=== PATIENT | female | born 1940 | race Caucasian/White ===

== ENCOUNTER 2018-08-14 10:04 | Outpatient (REF) | payer MEDICARE, MEDICAID, SELFPAY ==
[2018-08-14 13:22] LABS: Anion Gap 10.4 mmol/L (3-11); BUN 22 mg/dL (7-18); CO2 28.6 mmol/L (21.0-32.0); CREATININE 0.88 mg/dL (0.55-1.02); Calcium 10.1 mg/dL (8.5-10.1); Chloride 101 mmol/L (98-107); Cholesterol 212 mg/dL (50-200); Glucose 105 mg/dL (70-100); HDL Cholesterol 57 mg/dL (40-60); LDL CHOLESTEROL 135 mg/dL (<100); Potassium 3.9 mmol/L (3.5-5.1); Sodium 140 mmol/L (136-145); Triglyceride 112 mg/dL (30-150)
[2018-08-15 12:34] LABS: ALT 23 U/L (12-78); AST 21 U/L (15-37); Alkaline Phosphatase 78 U/L (46-116); Bilirubin, Direct 0.14 mg/dL (0.00-0.20); Bilirubin, Total 0.5 mg/dL (0.2-1.0); Total Protein 7.6 g/dL (6.4-8.2)
== END 2018-08-14 10:24 ==
LOC: NCHCN 10:04
PROVIDERS: PCP Nurse Practitioner Family; Visit Provider Nurse Practitioner Family
DX: K30 Functional dyspepsia (principal); R42 Dizziness and giddiness; E83.52 Hypercalcemia; N95.2 Postmenopausal atrophic vaginitis; I10 Essential (primary) hypertension; M19.90 Unspecified osteoarthritis, unspecified site; R32 Unspecified urinary incontinence; E66.9 Obesity, unspecified; E78.5 Hyperlipidemia, unspecified
CPT/HCPCS: 80048; 80061; 80076; 83721

== ENCOUNTER 2018-08-28 01:37 | Outpatient (CLI) | payer MEDICARE, MEDICAID, SELFPAY ==
--- NOTE | 2018-08-28 14:28 | DI.DEXA_ITS ---
SYMPTOM/DIAGNOSIS: SCREENING FOR OSTEOPOROSIS IN POST MENOPAUSAL WOMAN, Z78.0 DEXA SCAN: For the right forearm, a T score of -0.8 and a Z score of 1.8 are consistent with osteopenia. For the left hip, a T score of -1.8 and a Z score of 0 are also consistent with osteopenia and an increased fracture risk. When compared with the prior study of 06/12/03, the findings today represent a -5.4% interval decrease in mineralization. For the lumbar spine, a T score of -0.3 and a Z score of 2.2 are within the normal range and the values today represent a +20.5% interval increase in mineralization when compared with the 06/12/2003 exam. The scanogram reveals no evidence of a fracture.
== END 2018-08-28 01:57 ==
PROVIDERS: PCP Nurse Practitioner Family; Visit Provider Nurse Practitioner Family
DX: M85.88 Other specified disorders of bone density and structure, other site (principal); Z78.0 Asymptomatic menopausal state
CPT/HCPCS: 77080

== ENCOUNTER 2018-08-28 09:55 | Outpatient (REF) | payer MEDICARE, MEDICAID, SELFPAY ==
[2018-08-28 12:38] LABS: Potassium 3.9 mmol/L (3.5-5.1)
== END 2018-08-28 10:15 ==
LOC: NCHCN 09:55
PROVIDERS: PCP Nurse Practitioner Family; Visit Provider Nurse Practitioner Family
DX: E87.6 Hypokalemia (principal)
CPT/HCPCS: 84132

== ENCOUNTER 2019-02-12 15:07 | Outpatient (REF) | payer MEDICARE, MEDICAID, SELFPAY ==
[2019-02-12 22:17] LABS: ALT 24 U/L (12-78); AST 25 U/L (15-37); Albumin 3.9 g/dL (3.4-5.0); Alkaline Phosphatase 67 U/L (46-116); Anion Gap 10.5 mmol/L (3-11); BUN 17 mg/dL (7-18); Bilirubin, Total 0.5 mg/dL (0.2-1.0); CO2 27.5 mmol/L (21.0-32.0); CREATININE 0.81 mg/dL (0.55-1.02); Calcium 10.6 mg/dL (8.5-10.1); Chloride 100 mmol/L (98-107); Glucose 98 mg/dL (70-100); Potassium 4.1 mmol/L (3.5-5.1); Sodium 138 mmol/L (136-145); Total Protein 7.8 g/dL (6.4-8.2)
== END 2019-02-12 15:27 ==
LOC: NCHCN 15:07
PROVIDERS: PCP Nurse Practitioner Family; Visit Provider Nurse Practitioner Family
DX: I10 Essential (primary) hypertension (principal); R42 Dizziness and giddiness; E83.52 Hypercalcemia; K30 Functional dyspepsia
CPT/HCPCS: 80053

== ENCOUNTER 2019-03-20 12:35 | Outpatient (CLI) | payer MEDICARE, MEDICAID, SELFPAY ==
[2019-03-20 14:03] LABS: ALT 23 U/L (12-78); AST 19 U/L (15-37); Albumin 3.7 g/dL (3.4-5.0); Alkaline Phosphatase 68 U/L (46-116); Anion Gap 11.5 mmol/L (3-11); BUN 15 mg/dL (7-18); Bilirubin, Total 0.5 mg/dL (0.2-1.0); CO2 28.5 mmol/L (21.0-32.0); CREATININE 0.82 mg/dL (0.55-1.02); Calcium 9.6 mg/dL (8.5-10.1); Chloride 101 mmol/L (98-107); Glucose 99 mg/dL (70-100); Potassium 3.8 mmol/L (3.5-5.1); Sodium 141 mmol/L (136-145); Total Protein 7.2 g/dL (6.4-8.2)
[2019-03-21 10:14] LABS: Parathyroid Hormone,Intact 58 pg/ml (19-88)
== END 2019-03-20 12:55 ==
PROVIDERS: PCP Nurse Practitioner Family; Visit Provider Nurse Practitioner Family
DX: E83.52 Hypercalcemia (principal); E87.6 Hypokalemia; I10 Essential (primary) hypertension
CPT/HCPCS: 80053; 82306; 83970

== ENCOUNTER → 2019-05-20 10:35 | Outpatient (BNVA) | payer MEDICARE, SELFPAY | PROVIDERS: PCP Nurse Practitioner Family; Visit Provider Nurse Practitioner Gerontology | DX: R32 Unspecified urinary incontinence (principal); I10 Essential (primary) hypertension | CPT/HCPCS: 51798; 99204 ==

== ENCOUNTER 2019-08-15 12:45 | Outpatient (REF) | payer MEDICARE, MEDICAID, SELFPAY ==
[2019-08-15 21:27] LABS: Anion Gap 7.1 mmol/L (3-11); BUN 20 mg/dL (7-18); CO2 30.9 mmol/L (21.0-32.0); CREATININE 0.87 mg/dL (0.55-1.02); Calcium 10.4 mg/dL (8.5-10.1); Chloride 101 mmol/L (98-107); Glucose 97 mg/dL (74-106); Sodium 139 mmol/L (136-145)
== END 2019-08-15 13:05 ==
LOC: NCHCN 12:45
PROVIDERS: PCP Nurse Practitioner Family; Visit Provider Nurse Practitioner Family
DX: I10 Essential (primary) hypertension (principal); E87.6 Hypokalemia; K30 Functional dyspepsia; R42 Dizziness and giddiness; E83.52 Hypercalcemia
CPT/HCPCS: 80048

== ENCOUNTER 2019-08-19 11:02 | Outpatient (CLI) | payer MEDICARE, SELFPAY ==
[2019-08-19 14:56] LABS: Vitamin D 25 Total 39.5 ng/ml (30-100)
[2019-08-19 21:51] LABS: Ionized Calcium 1.16 mmol/L (1.12-1.32)
[2019-08-20 12:33] LABS: Parathyroid Hormone,Intact 43 pg/mL (19-88)
== END 2019-08-19 11:22 ==
PROVIDERS: PCP Nurse Practitioner Family; Visit Provider Nurse Practitioner Family
DX: E83.52 Hypercalcemia (principal); E21.5 Disorder of parathyroid gland, unspecified
CPT/HCPCS: 36415; 82306; 82330; 83970

== ENCOUNTER 2019-09-13 02:46 | Outpatient (CLI) | payer MEDICARE, MEDICAID, SELFPAY ==
--- NOTE | 2019-09-13 08:47 | DI.MAMMO_ITS ---
EXAM: MG MAMMO DIAGNOSTIC BI CLINICAL HISTORY: DIAGNOSTIC, RT BREAST PAIN, N64.4 TECHNIQUE: Mammograms were interpreted according to the usual protocol including computer analysis w [employer] system, tomosynthesis and C-view imaging. FINDINGS: The breasts are of moderate density with fairly symmetrical distribution of fibroglandular tissue. N o dominant mass or clumped microcalcification is identified in either breast. Current examination is compared with previous examinations including December 2014 and there has been no gross interval change in appearance in comparison with the previous studies. IMPRESSION: No specific evidence of malignancy at this time. Routine screening examinations are suggested at year ly intervals in this age group according to the ACS ACR guidelines. Category 1. Breast density, categ ory B. BI-RADS Cat 1 - Negative. Breast Density - Category B - Scattered areas of fibroglandular density.
== END 2019-09-13 03:06 ==
PROVIDERS: PCP Nurse Practitioner Family; Visit Provider Nurse Practitioner Family
DX: N64.4 Mastodynia (principal)
CPT/HCPCS: 77062; 77066; G0279

== ENCOUNTER 2020-09-17 09:22 | Outpatient (CLI) | payer MEDICARE, MEDICAID, SELFPAY ==
[2020-09-18 14:42] LABS: COVID-19 RT-PCR UVMMC Result Negative (Negative)
== END 2020-09-17 09:42 ==
PROVIDERS: PCP Nurse Practitioner Family; Visit Provider Nurse Practitioner Family
DX: Z11.59 Encounter for screening for other viral diseases (principal); Z02.2 Encounter for examination for admission to residential institution
CPT/HCPCS: U0003

== ENCOUNTER 2021-03-18 11:13 | Outpatient (REF) | payer MEDICARE, MEDICAID, SELFPAY ==
[2021-03-18 14:07] LABS: ALT 23 U/L (14-59); AST 17 U/L (15-37); Albumin 3.7 g/dL (3.4-5.0); Alkaline Phosphatase 63 U/L (46-116); Anion Gap 8.5 mmol/L (3-11); BUN 19 mg/dL (7-18); Bilirubin, Total 0.4 mg/dL (0.2-1.0); CO2 29.5 mmol/L (21.0-32.0); CREATININE 0.9 mg/dL (0.55-1.02); Calcium 10.2 mg/dL (8.5-10.1); Chloride 101 mmol/L (98-107); Glucose 104 mg/dL (74-106); Potassium 3.9 mmol/L (3.5-5.1); Sodium 139 mmol/L (136-145); Total Protein 7.4 g/dL (6.4-8.2)
== END 2021-03-18 11:14 | disposition home or self-care (01) ==
LOC: NCHCN 11:13
PROVIDERS: PCP Nurse Practitioner Family; Visit Provider Nurse Practitioner Family
DX: K30 Functional dyspepsia (principal); E83.52 Hypercalcemia; E66.9 Obesity, unspecified; M54.9 Dorsalgia, unspecified; I10 Essential (primary) hypertension; N95.2 Postmenopausal atrophic vaginitis; R32 Unspecified urinary incontinence; M85.80 Other specified disorders of bone density and structure, unspecified site
CPT/HCPCS: 80053

== ENCOUNTER 2021-03-23 03:35 | Outpatient (CLI) | payer MEDICARE, MEDICAID, SELFPAY ==
[2021-03-23 09:52] LABS: PHOSPHORUS 3.2 mg/dL (2.6-4.7)
[2021-03-23 16:46] LABS: Ionized Calcium 1.17 mmol/L (1.12-1.32)
[2021-03-24 08:55] LABS: Parathyroid Hormone,Intact 45 pg/mL (19-88)
[2021-03-25 03:44] LABS: Vitamin D 25 Total 43.9 ng/mL (30-100)
== END 2021-03-23 03:36 | disposition home or self-care (01) ==
PROVIDERS: PCP Nurse Practitioner Family; Visit Provider Nurse Practitioner Family
DX: E83.52 Hypercalcemia (principal)
CPT/HCPCS: 36415; 82306; 82330; 83735; 83970; 84100

== ENCOUNTER 2021-11-02 02:45 | Outpatient (CLI) | payer MEDICARE, MEDICAID, SELFPAY ==
--- NOTE | 2021-11-02 09:00 | DI.MAMMO_ITS ---
Exam(s) MAMMO DIAGNOSTIC BI EXAM: MAMMO DIAGNOSTIC BI CLINICAL HISTORY: BREAST LESION, N64.9 TECHNIQUE: Mammograms were interpreted according to the usual protocol including computer analysis w [employer] CAD system, tomosynthesis and C-view imaging. COMPARISON: FINDINGS: The breasts are of moderate density with fairly symmetrical distribution of fibroglandular tissue. N o dominant mass or clumped microcalcification is identified in either breast. The current examinatio n is compared with previous examinations including September 2019 and there has been no gross interval change in appearance in comparison with the prior studies. IMPRESSION: No specific evidence of malignancy at this time. Routine screening examinations are suggested at yea rly intervals in this age group according to the ACS ACR guidelines. BI-RADS Category 1 - Negative Breast Density - Category B - Scattered areas of fibroglandular density
== END 2021-11-02 03:05 ==
PROVIDERS: PCP Nurse Practitioner Family; Visit Provider Nurse Practitioner Family
DX: N64.89 Other specified disorders of breast
CPT/HCPCS: 77062; 77066; G0279

== ENCOUNTER 2022-02-04 18:53 | Outpatient (REF) | payer MEDICARE, MEDICAID, SELFPAY ==
[2022-02-04 20:45] LABS: ALT 27 U/L (14-59); AST 32 U/L (15-37); Albumin 4.2 g/dL (3.4-5.0); Alkaline Phosphatase 77 U/L (46-116); Anion Gap 9.8 mmol/L (3-11); BUN 16 mg/dL (7-18); Bilirubin, Total 0.5 mg/dL (0.2-1.0); CO2 28.2 mmol/L (21.0-32.0); CREATININE 0.9 mg/dL (0.55-1.02); Chloride 102 mmol/L (98-107); Glucose 87 mg/dL (74-106); Potassium 4.3 mmol/L (3.5-5.1); Sodium 140 mmol/L (136-145); Total Protein 7.5 g/dL (6.4-8.2)
== END 2022-02-04 18:54 | disposition home or self-care (01) ==
LOC: NCHCN 18:53
PROVIDERS: PCP Nurse Practitioner Family; Visit Provider Nurse Practitioner Family
DX: E83.52 Hypercalcemia (principal); M85.80 Other specified disorders of bone density and structure, unspecified site; E78.5 Hyperlipidemia, unspecified; I10 Essential (primary) hypertension; E87.6 Hypokalemia
CPT/HCPCS: 80053; 82306

== ENCOUNTER 2022-06-17 15:49 | Outpatient (REF) | payer MEDICARE, MEDICAID, SELFPAY ==
[2022-06-17 17:00] LABS: ALT 19 U/L (14-59); AST 21 U/L (15-37); Albumin 3.9 g/dL (3.4-5.0); Alkaline Phosphatase 51 U/L (46-116); Anion Gap 7.4 mmol/L (3-11); BUN 20 mg/dL (7-18); Bilirubin, Total 0.4 mg/dL (0.2-1.0); CO2 29.6 mmol/L (21.0-32.0); CREATININE 0.8 mg/dL (0.55-1.02); Calcium 10.1 mg/dL (8.5-10.1); Chloride 103 mmol/L (98-107); Glucose 93 mg/dL (74-106); Potassium 3.9 mmol/L (3.5-5.1); Sodium 140 mmol/L (136-145); Total Protein 7.5 g/dL (6.4-8.2)
== END 2022-06-17 15:50 | disposition home or self-care (01) ==
LOC: NCHCN 15:49
PROVIDERS: PCP Nurse Practitioner Family; Visit Provider Nurse Practitioner Family
DX: I10 Essential (primary) hypertension (principal); E87.6 Hypokalemia; E83.52 Hypercalcemia
CPT/HCPCS: 80053

== ENCOUNTER 2022-08-30 17:59 | Outpatient (REF) | payer MEDICARE, MEDICAID, SELFPAY ==
[2022-08-30 12:03] LABS: Anion Gap 6.9 mmol/L (3-11); BUN 17 mg/dL (7-18); CO2 32.1 mmol/L (21.0-32.0); CREATININE 0.9 mg/dL (0.55-1.02); Calcium 10.2 mg/dL (8.5-10.1); Chloride 100 mmol/L (98-107); Estimated GFR 64.63 (mL/min/1.73m2); Glucose 99 mg/dL (74-106); Potassium 3.8 mmol/L (3.5-5.1); Sodium 139 mmol/L (136-145)
== END 2022-08-30 18:00 | disposition home or self-care (01) ==
LOC: NCHCN 17:59
PROVIDERS: PCP Nurse Practitioner Family; Visit Provider Nurse Practitioner Family
DX: I10 Essential (primary) hypertension (principal); E87.6 Hypokalemia
CPT/HCPCS: 80048

== ENCOUNTER 2023-06-25 15:50 | Outpatient (REF) | payer MEDICARE, MEDICAID, SELFPAY ==
[2023-06-25 15:47] LABS: Anion Gap 7.7 mmol/L (3-11); BUN 19 mg/dL (7-18); CO2 27.3 mmol/L (21.0-32.0); CREATININE 0.9 mg/dL (0.55-1.02); Chloride 99 mmol/L (98-107); Estimated GFR 64.63 (mL/min/1.73m2); Glucose 148 mg/dL (74-106); Potassium 3.5 mmol/L (3.5-5.1); Sodium 134 mmol/L (136-145)
[2023-06-25 16:21] LABS: Vitamin D 25 Total 39.6 ng/mL (30-100)
== END 2023-06-25 15:51 | disposition home or self-care (01) ==
LOC: NCHCN 15:50
PROVIDERS: PCP Nurse Practitioner Family; Visit Provider Nurse Practitioner Family
DX: I10 Essential (primary) hypertension (principal); E87.6 Hypokalemia; K30 Functional dyspepsia; M85.88 Other specified disorders of bone density and structure, other site
CPT/HCPCS: 80048; 82306

== ENCOUNTER 2023-06-29 16:19 | Outpatient (REF) | payer MEDICARE, MEDICAID, SELFPAY | END 2023-06-29 16:20 | disposition home or self-care (01) | LOC: NCHCN 16:19 | PROVIDERS: PCP Nurse Practitioner Family; Visit Provider Nurse Practitioner Family | DX: R73.9 Hyperglycemia, unspecified (principal) | CPT/HCPCS: 83036 ==

== ENCOUNTER 2023-09-09 10:01 | Outpatient (REF) | payer MEDICARE, MEDICAID, SELFPAY | END 2023-09-09 10:02 | disposition home or self-care (01) | LOC: NCHCN 10:01 | PROVIDERS: PCP Nurse Practitioner Family; Visit Provider Nurse Practitioner Family | DX: R35.0 Frequency of micturition (principal); Z87.440 Personal history of urinary (tract) infections; R82.998 Other abnormal findings in urine | CPT/HCPCS: 87086 ==

== ENCOUNTER 2023-10-31 18:38 | Outpatient (REF) | payer MEDICARE, MEDICAID, SELFPAY ==
[2023-10-31 17:26] LABS: Source Nasopharynx
[2023-10-31 18:08] LABS: COVID-19 PCR Negative (Negative)
== END 2023-10-31 18:39 | disposition home or self-care (01) ==
LOC: NCHCN 18:38
PROVIDERS: PCP Nurse Practitioner Family; Visit Provider Nurse Practitioner Family
DX: Z20.822 Contact with and (suspected) exposure to COVID-19 (principal)
CPT/HCPCS: 87635

== ENCOUNTER 2023-12-22 10:30 | Outpatient (REF) | payer MEDICARE, MEDICAID, SELFPAY ==
[2023-12-22 14:57] LABS: Hemoglobin A1C 5.9 % (<5.7)
== END 2023-12-22 10:31 | disposition home or self-care (01) ==
LOC: NCHCN 10:30
PROVIDERS: PCP Nurse Practitioner Family; Visit Provider Nurse Practitioner Family
DX: R73.03 Prediabetes (principal)
CPT/HCPCS: 83036

== ENCOUNTER 2024-05-22 18:38 | Outpatient (REF) | payer MEDICARE, MEDICAID, SELFPAY ==
[2024-05-22 13:55] LABS: Bilirubin Negative (Negative); Blood Negative (Negative); Clarity Sl Cloudy (Clear); Glucose Negative (Negative); Ketones Negative (Negative); Leukocyte Esterase Trace (Negative); Nitrite Positive (Negative); Urobilinogen 0.2 mg/dL (Up to 0.2)
[2024-05-22 14:12] LABS: Bacteria Moderate HPF (Negative); C & S Indicated? No/Sq. Contamination; Casts Negative LPF (Negative); Crystals Negative HPF (Negative); Epithelial Cells Moderate HPF (Negative); Mucus Negative (Negative); RBC 0-2 HPF (0-2)
== END 2024-05-22 18:39 | disposition home or self-care (01) ==
LOC: NCHCN 18:38
PROVIDERS: PCP Nurse Practitioner Family; Visit Provider Nurse Practitioner Family
DX: R82.998 Other abnormal findings in urine (principal); N95.2 Postmenopausal atrophic vaginitis
CPT/HCPCS: 81003; 81015

== ENCOUNTER 2024-05-23 20:17 | Outpatient (REF) | payer MEDICARE, MEDICAID, SELFPAY ==
[2024-05-23 19:52] LABS: Bilirubin Negative (Negative); Blood Negative (Negative); Clarity Sl Cloudy (Clear); Glucose Negative (Negative); Ketones Negative (Negative); Leukocyte Esterase Negative (Negative); Nitrite Positive (Negative); Urobilinogen 0.2 mg/dL (Up to 0.2)
[2024-05-23 19:55] LABS: Bacteria Moderate HPF (Negative); C & S Indicated? No; Casts Negative LPF (Negative); Crystals Negative HPF (Negative); Epithelial Cells Rare HPF (Negative); Mucus Negative (Negative); RBC Negative HPF (0-2); WBC 0-2 HPF (0-5)
== END 2024-05-23 20:18 | disposition home or self-care (01) ==
LOC: NCHCN 20:17
PROVIDERS: PCP Nurse Practitioner Family; Visit Provider Nurse Practitioner Family
DX: N95.2 Postmenopausal atrophic vaginitis (principal); R82.89 Other abnormal findings on cytological and histological examination of urine
CPT/HCPCS: 81003; 81015

== ENCOUNTER 2024-06-12 17:33 | Outpatient (REF) | payer MEDICARE, MEDICAID, SELFPAY ==
[2024-06-12 13:52] LABS: Anion Gap 6.3 mmol/L (3-11); BUN 15 mg/dL (7-18); CO2 30.7 mmol/L (21.0-32.0); CREATININE 0.8 mg/dL (0.55-1.02); Calcium 10.1 mg/dL (8.5-10.1); Chloride 96 mmol/L (98-107); Estimated GFR 73.98 (mL/min/1.73m2); Glucose 87 mg/dL (74-106); Potassium 3.9 mmol/L (3.5-5.1); Sodium 133 mmol/L (136-145)
[2024-06-12 14:04] LABS: Hemoglobin A1C 5.5 % (<5.7)
== END 2024-06-12 17:34 | disposition home or self-care (01) ==
LOC: NCHCN 17:33
PROVIDERS: PCP Nurse Practitioner Family; Visit Provider Nurse Practitioner Family
DX: R73.03 Prediabetes (principal)
CPT/HCPCS: 80048; 83036

== ENCOUNTER 2024-07-12 13:32 | Outpatient (REF) | payer MEDICARE, MEDICAID, SELFPAY ==
[2024-07-12 14:48] LABS: Anion Gap 7.3 mmol/L (3-11); BUN 16 mg/dL (7-18); CO2 31.7 mmol/L (21.0-32.0); CREATININE 0.9 mg/dL (0.55-1.02); Calcium 9.9 mg/dL (8.5-10.1); Chloride 101 mmol/L (98-107); Estimated GFR 63.83 (mL/min/1.73m2); Glucose 86 mg/dL (74-106); Potassium 3.8 mmol/L (3.5-5.1); Sodium 140 mmol/L (136-145); Vitamin D 25 Total 29.5 ng/mL (30-100)
== END 2024-07-12 13:33 | disposition home or self-care (01) ==
LOC: NCHCN 13:32
PROVIDERS: PCP Nurse Practitioner Family; Visit Provider Nurse Practitioner Family
DX: M85.88 Other specified disorders of bone density and structure, other site (principal); E87.1 Hypo-osmolality and hyponatremia
CPT/HCPCS: 80048; 82306

== ENCOUNTER 2024-11-13 20:16 | Outpatient (REF) | payer MEDICARE, MEDICAID, SELFPAY ==
[2024-11-13 20:32] LABS: Hemoglobin A1C 5.7 % (<5.7)
== END 2024-11-13 20:17 | disposition home or self-care (01) ==
LOC: NCHCN 20:16
PROVIDERS: PCP Nurse Practitioner Family; Visit Provider Nurse Practitioner Family
DX: R73.03 Prediabetes (principal)
CPT/HCPCS: 83036

== ENCOUNTER 2025-01-04 09:53 | Emergency (ER) | payer MEDICARE, MEDICAID, SELFPAY ==
[2025-01-04 09:59] VITALS: BP 143/70; PULSE 96; RESP 20; TEMP 36.7; O2SAT 96
--- NOTE | 2025-01-04 10:00 | DI.RAD_ITS ---
Exam(s) XR CHEST 2V PA LATERAL EXAM: XR CHEST 2V PA LATERAL CLINICAL HISTORY: Cough TECHNIQUE: 2D digital imaging was performed of the chest. Two images were obtained. PA and lateral views were obtained. COMPARISON: CR CHEST 2 VIEWS PA,LAT from 04/28/2011 FINDINGS: MEDIASTINUM: Normal. HEART: Normal. PULMONARY VASCULATURE: Normal. LUNGS: There is linear atelectasis in the left costophrenic angle. No focal consolidating infiltrate s are present. PLEURAL SPACE: No pleural effusion or pneumothorax. BONE:Within normal limits for the patient's age. OTHER FINDINGS:Normal. IMPRESSION: No acute pulmonary findings. DATA REPOSITORY: RADIATION DOSE DELIVERED:
[2025-01-04 10:20] VITALS: BP 143/70; PULSE 96; RESP 20; TEMP 36.7; O2SAT 96
[2025-01-04 10:50] LABS: COVID-19 PCR Negative (Negative); Influenza A PCR Negative (Negative); Influenza B PCR Negative (Negative); RSV PCR Negative (Negative)
[2025-01-04 10:52] LABS: Source Nasopharynx
--- NOTE | 2025-01-04 10:58 | ED.GENADUL_ITS ---
Discharge Plan Disposition Patient Disposition: Home Condition: Stable Discharge Details Clinical Impression: Upper respiratory infection, viral Primary Care Provider: Areli Lopez ED Provider: Radha Benton Home Meds and New Rx's Prescriptions: New benzonatate 100 mg capsule 100 mg PO BID-TID PRN (Reason: cough) Qty: 10 0RF Rx Instructions: Take 1 capsule up to 2-3 times daily as needed for cough Continued oxybutynin chloride 5 mg tablet extended release 24hr 5 mg PO DAILY Qty: 90 0RF acetaminophen [Tylenol] 325 MG tablet 325 mg PO Q4H PRN Vitamin C 100 MG tablet 100 mg PO DAILY hydrochlorothiazide 25 MG tablet 12.5 mg PO DAILY Nasir/Vit D 1 cap PO DAILY estradiol [Vagifem] 10 MCG tablet 10 mcg VG twice weekly Qty: 25 losartan 100 MG tablet 100 mg PO HS amlodipine 5 mg tablet 5 mg PO DAILY potassium chloride 20 mEq tablet extended release 20 meq PO DAILY chlorthalidone 50 mg tablet 50 mg PO DAILY Discharge Instructions Instructions: Cough, runny nose, and the common cold Additional Instructions: No evidence for pneumonia today on the x-ray. Negative for COVID and flu on our swab. Please use the Tessalon Perles as needed for cough as directed. Use your albuterol inhaler 1 or 2 puffs every 4-6 hours as needed. You may also use [id number] cough and cold medicines including DayQuil or similar. Follow up with primary care provider in 3-5 days. Return to ED sooner if any worsening or concerns. Please take Tylenol or Ibuprofen with food every 4-6 hours as needed for pain and swelling. Referrals: Areli Lopez [Primary Care Provider] - 3 days Discharge Data Discharge Date/Time-TO BE ENTERED AT DEPARTURE: 01/04/25 11:23 HPI General Mode of arrival: ambulatory . Date/Time Provider Initiated Documentation: 01/04/25 10:03 . Limitations to Documentation: no limitations . Information obtained by: patient, RN notes reviewed and old records reviewed . HPI Narrative: 84-year-old female presents to the ER with a chief complaint of cough for the last 3 days. Lives at [facility] in history of dementia. Denies any fever or chills. No history of COPD or other respiratory. History of hypertension osteoarthritis hyperlipidemia diverticulitis. She is alert and oriented. No wheezing auscultated on exam. Denies any other associated symptoms or concerns. Related Data Home Medications ?Medication ?Instructions ?Recorded ?Confirmed losartan 100 mg tablet 100 mg PO HS 02/22/14 01/04/25 acetaminophen 325 mg tablet 325 mg PO Q4H PRN 07/16/14 01/04/25 (Tylenol) ascorbic acid (vitamin C) 100 mg 100 mg PO DAILY 07/16/14 01/04/25 tablet (Vitamin C) Nasir/Vit D 1 cap PO DAILY 11/20/14 01/04/25 hydrochlorothiazide 25 mg tablet 12.5 mg PO DAILY 11/20/14 01/04/25 estradiol 10 mcg vaginal tablet 10 mcg vaginal twice weekly #25 08/05/15 01/04/25 (Vagifem) tabs oxybutynin chloride 5 mg 5 mg PO DAILY #90 tabs 05/20/19 01/04/25 tablet,extended release 24 hr amlodipine 5 mg tablet 5 mg PO DAILY 01/04/25 01/04/25 benzonatate 100 mg capsule 100 mg PO BID-TID PRN cough #10 01/04/25 caps chlorthalidone 50 mg tablet 50 mg PO DAILY 01/04/25 01/04/25 potassium chloride 20 mEq 20 meq PO DAILY 01/04/25 01/04/25 tablet,extended release Previous Rx's ?Medication ?Instructions ?Recorded oxybutynin chloride 5 mg 5 mg PO DAILY #90 tabs 05/20/19 tablet,extended release 24 hr benzonatate 100 mg capsule 100 mg PO BID-TID PRN cough #10 01/04/25 caps Allergies Allergy/AdvReac Type Severity Reaction Status Date / Time Penicillins Allergy Intermediate Hives Verified 01/04/25 10:03 cephalexin (From Keflex) Allergy Mild Other (See Verified 01/04/25 10:03 Comment) codeine Allergy Mild other Verified 01/04/25 10:03 lisinopril Allergy Mild Swelling/Ed Verified 01/04/25 10:03 esmer General Stated Complaint: RespSymp EVANGELISTA: 4 Review of Systems All systems reviewed & are unremarkable except as noted in HPI and below Respiratory Respiratory: Reports chest congestion and Reports cough Exam Narrative Exam Narrative: Constitutional: Alert and oriented x3. Appears stated age. Normal body habitus. Head: Normocephalic, no trauma. Eyes: Pupils PERRL, Red reflex noted, EOM's intact. Eyelids symmetrical without lesions, discharge, or swelling. ENT: Bilateral TM's WNL, External ear normal to inspection, no mastoid TTP, swelling, or erythema, Nasal turbinates WNL, no nasal discharge. Normal dentition, Posterior pharynx WNL, no exudate. Chest: RRR, Normal S1, S2, distal pulses intact. Resp: Lungs clear to auscultation bilaterally, no wheezes, rales, or rhonchi. Abdomen: Soft, non-distended, Normoactive bowel sounds all 4 quads. Musculoskeletal: Normal gait, Moves all 4 extremities without difficulty. Skin: No suspicious rashes or lesions. Capillary refill less than 2 sec. Neurologic: Cranial nerves II-XII intact. Alert and oriented x 3. Motor: No deficits noted. Sensory: Intact bilaterally all 4 extremities. Hematologic/Lymphatic: No ecchymosis, no lymphadenopathy. Course Vital Signs Vital signs: Vital Signs Temperature 36.7 C 01/04/25 09:59 Pulse 96 H 01/04/25 09:59 Respiratory Rate 20 01/04/25 09:59 Blood Pressure 143/70 H 01/04/25 09:59 Pulse Oximetry 96 01/04/25 09:59 Temperature 36.7 C 01/04/25 10:20 Temperature Source Oral 01/04/25 10:20 Pulse 96 H 01/04/25 10:20 Respiratory Rate 20 01/04/25 10:20 Blood Pressure 143/70 H 01/04/25 10:20 Blood Pressure Position Sitting 01/04/25 09:59 Pulse Oximetry 96 01/04/25 10:20 Oxygen Delivery Method Room Air 01/04/25 10:20 Oxygen Flow Rate 0 01/04/25 09:59 Pain Level 0 01/04/25 10:20 Lab/Test Results Lab/Test Results: Laboratory Tests Range/Units 01/04/25 10:08 COVID-19 Source Nasopharynx SARS-CoV-2 (PCR) (Negative) Negative Influenza Type A (PCR) (Negative) Negative Influenza Type B (PCR) (Negative) Negative RSV (PCR) (Negative) Negative Medical Decision Making 84-year-old female presents to the ER with a chief complaint of cough for the last 3 days. Lives at [facility] in history of dementia. Denies any fever or chills. No history of COPD or other respiratory. History of hypertension osteoarthritis hyperlipidemia diverticulitis. She is alert and oriented. No wheezing auscultated on exam. Denies any other associated symptoms or concerns. Chest x-ray shows no evidence for infiltrate, negative for COVID flu RSV. Will give Tessalon Perles and albuterol inhaler. Discussed home care and taking [id number] medications. Discussed strict return instructions, verbalized understanding. This text was generated using [employer] system, please disregard any oddities of phrase or misspellings. Medical Records Medical records reviewed: Yes I reviewed the patient's medical records. Lab Data Lab results reviewed: Yes I reviewed the patient's lab results. Labs: Laboratory Tests Range/Units 01/04/25 10:08 COVID-19 Source Nasopharynx SARS-CoV-2 (PCR) (Negative) Negative Influenza Type A (PCR) (Negative) Negative Influenza Type B (PCR) (Negative) Negative RSV (PCR) (Negative) Negative Quality:SDOH Health Related Social Needs: No Data to Display PFSH All Active Problems Upper respiratory infection, viral (Acute) Urinary incontinence (Chronic) Overactive bladder treated with oxybutynin with+/- results. 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 Mildly symptomatic. No treatment recommended Hyperlipidemia (Chronic) Hypertension (Chronic) cholelithiasis by US (Chronic) Osteoarthritis (Chronic) Osteopenia (Chronic) GI bleed (Acute 11/20/14) H/O gastrointestinal diverticular hemorrhage (Chronic) H/O surgical procedure (Chronic) a. colonoscopy b. EGD c. Cystoscopy d. 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
[2025-01-04] MEDS: Benzonatate 100 MG CAP PO ×2 (11:10→11:21)
[2025-01-04] MEDS: Albuterol HFA 8 GM 60 PUFF INH IH (11:10)
[2025-01-04 11:23] VITALS: BP 146/74; PULSE 74; RESP 16; TEMP 36.7; O2SAT 98
--- NOTE | 2025-01-04 12:44 | NUR.NOTE ---
Revised discharge orders faxed back to [facility] and sent to Medical Records to be scanned in to chart. Nursing Note:
== END 2025-01-04 11:23 | disposition home or self-care (01) ==
LOC: ER 11:16
PROVIDERS: Emergency Provider Registered Nurse Emergency; PCP Nurse Practitioner Family
DX: J06.9 Acute upper respiratory infection, unspecified (principal); B97.89 Other viral agents as the cause of diseases classified elsewhere; I10 Essential (primary) hypertension; E78.5 Hyperlipidemia, unspecified; F03.90 Unspecified dementia, unspecified severity, without behavioral disturbance, psychotic disturbance, mood disturbance, and anxiety
CPT/HCPCS: 87637; 99283; 71046

== ENCOUNTER 2025-03-26 20:14 | Outpatient (REF) | payer MEDICARE, MEDICAID, SELFPAY ==
[2025-03-26 10:54] LABS: ALT 17 U/L (14-59); AST 15 U/L (15-37); Albumin 3.2 g/dL (3.4-5.0); Alkaline Phosphatase 54 U/L (46-116); Anion Gap 9.5 mmol/L (3-11); BUN 20 mg/dL (7-18); Bilirubin, Total 0.5 mg/dL (0.2-1.0); CO2 29.5 mmol/L (21.0-32.0); Calcium 9.7 mg/dL (8.5-10.1); Chloride 102 mmol/L (98-107); Estimated GFR 73.52 (mL/min/1.73m2); Glucose 117 mg/dL (74-106); NT-proBNP 384 pg/mL (<300); Potassium 3.4 mmol/L (3.5-5.1); Sodium 141 mmol/L (136-145); Total Protein 6.6 g/dL (6.4-8.2)
[2025-03-26 11:07] LABS: D-Dimer 2039 ng/mlFEU (<500)
== END 2025-03-26 20:15 | disposition home or self-care (01) ==
LOC: NCHCN 20:14
PROVIDERS: PCP Nurse Practitioner Family; Visit Provider Nurse Practitioner Family
DX: R60.0 Localized edema (principal)
CPT/HCPCS: 80053; 83880; 85379

== ENCOUNTER 2025-03-30 17:52 | Outpatient (REF) | payer MEDICARE, MEDICAID, SELFPAY ==
[2025-03-30 12:54] LABS: Anion Gap 7.2 mmol/L (3-11); BUN 21 mg/dL (7-18); CO2 31.8 mmol/L (21.0-32.0); Calcium 9.8 mg/dL (8.5-10.1); Chloride 99 mmol/L (98-107); Estimated GFR 86.30 (mL/min/1.73m2); Glucose 81 mg/dL (74-106); Potassium 3.7 mmol/L (3.5-5.1); Sodium 138 mmol/L (136-145)
== END 2025-03-30 17:53 | disposition home or self-care (01) ==
LOC: NCHCN 17:52
PROVIDERS: PCP Nurse Practitioner Family; Visit Provider Nurse Practitioner Family
DX: R60.0 Localized edema (principal)
CPT/HCPCS: 80048

== ENCOUNTER 2025-04-02 15:40 | Outpatient (REF) | payer MEDICARE, MEDICAID, SELFPAY ==
[2025-04-02 11:00] LABS: Anion Gap 6.5 mmol/L (3-11); BUN 16 mg/dL (7-18); CO2 30.5 mmol/L (21.0-32.0); Calcium 10.0 mg/dL (8.5-10.1); Chloride 103 mmol/L (98-107); Estimated GFR 89.56 (mL/min/1.73m2); Glucose 110 mg/dL (74-106); Potassium 4.4 mmol/L (3.5-5.1); Sodium 140 mmol/L (136-145)
== END 2025-04-02 15:41 | disposition home or self-care (01) ==
LOC: NCHCN 15:40
PROVIDERS: PCP Nurse Practitioner Family; Visit Provider Nurse Practitioner Family
DX: E87.6 Hypokalemia (principal)
CPT/HCPCS: 80048

== ENCOUNTER 2025-05-14 12:06 | Outpatient (REF) | payer MEDICARE, MEDICAID, SELFPAY ==
[2025-05-14 12:22] LABS: Abs Immature Grans 0.03 10^3/uL (0.0-0.06); HCT 38.7 % (36.0-46.0); HGB 12.5 g/dL (11.2-15.7); Immature Grans % 0.4 %; MCH 29.3 pg (27.0-33.0); MCHC 32.3 % (32.0-36.0); MCV 91 fL (80-95); MPV 9.8 fL (8.0-11.0); Platelet Count 303 10^3/uL (130-400); RBC 4.26 10^6/uL (3.93-5.22); RDW 13.5 % (11.7-14.6); RDW-SD 45.1 fL; WBC 6.69 10^3/uL (4.4-10.8)
[2025-05-14 12:39] LABS: Anion Gap 4.2 mmol/L (3-11); BUN 12 mg/dL (7-18); CO2 31.8 mmol/L (21.0-32.0); Calcium 10.0 mg/dL (8.5-10.1); Chloride 102 mmol/L (98-107); Estimated GFR 73.52 (mL/min/1.73m2); Glucose 95 mg/dL (74-106); NT-proBNP 2079 pg/mL (<300); Potassium 4.4 mmol/L (3.5-5.1); Sodium 138 mmol/L (136-145)
[2025-05-14 12:41] LABS: Hemoglobin A1C 5.7 % (<5.7)
== END 2025-05-14 12:07 | disposition home or self-care (01) ==
LOC: NCHCN 12:06
PROVIDERS: PCP Nurse Practitioner Family; Visit Provider Nurse Practitioner Family
DX: R73.03 Prediabetes (principal)
CPT/HCPCS: 80048; 83036; 83880; 85025

== ENCOUNTER 2025-05-28 02:14 | Outpatient (CLI) | payer MEDICARE, MEDICAID, SELFPAY ==
--- NOTE | 2025-05-28 12:30 | DI.US_ITS ---
APPROVED REPORT EXAM: Comprehensive 2D, Doppler, and color-flow Echocardiogram Patient Location: Out-Patient Detention Officer: Emmett Howell RDCS (AE) Indications: Bilateral pedal edema Other Information Study Quality: Fair. Technically limited study due to body habitus. Conclusion Normal left ventricular wall thickness and chamber size. Ejection fraction is 55%. Wall motion is normal Normal right ventricular size and function Both atria are normal in size There is no structural or hemodynamically significant valvular disease Wall motion Left Ventricle The left ventricle is normal size. The left ventricular systolic function is normal. The left ventricular ejection fraction is within the normal range. There is normal left ventricular wall thickness. There is normal LV segmental wall motion. There is no ventricular septal defect visualized. LVEF is 55%. Right Ventricle The right ventricle is normal size. The right ventricular systolic function is normal. Atria The left atrium size is normal. The right atrium size is normal. The interatrial septum is intact with no evidence for an atrial septal defect. Aortic Valve The aortic valve is trileaflet There is no aortic valvular stenosis. No aortic regurgitation is present. Mitral Valve The mitral valve is normal in structure. No evidence of mitral valve stenosis. Trace to mild mitral regurgitation. Tricuspid Valve The tricuspid valve is normal in structure. There is no tricuspid valve stenosis. Trace tricuspid regurgitation. Pulmonic Valve The pulmonary valve is normal in structure. There is no pulmonic valvular stenosis. There is no pulmonic valvular regurgitation. Great Vessels The aortic root is normal in size. The ascending aorta is normal in size. Aortic arch is normal in caliber. IVC is normal in size and collapses >50% with inspiration. Pericardium There is no pericardial effusion. 2D Dimensions IVSD d PLAX 0.80 cm F: 0.6-1.0 Ao Root d 2.78 cm F: 2.7 - 3.3 LVPW d PLAX 0.77 cm F: 0.6 - 1.0 Ao Asc Diam d 2.95 cm F: 2.3 - 3.1 LVID d PLAX 5.29 cm F: 3.8 - 5.2 LVDs 3.77 cm F: 2.2 - 3.5 LV EF Teichholz 54.9 % FS 28.76 % LV EDV (Teich) 134.8 mL LV ESV (Teich) 60.7 mL Stroke Vol Index (Teich) 41.13 M-Mode TAPSE 2.52 cm (M/F) >1.7 Auto EF LV EDV A4C 109.1 mL LV EDV A2C 87.6 mL LV EDV BP 99.0 mL LV ESV A4C 50.8 mL LV ESV A2C 40.1 mL LV ESV BP 45.5 mL LVEF(%) A4C 53.4 % LVEF(%) A2C 54.2 % LVEF(%) BP 54.1 % LV SV A4C 58.3 ml LV SV A2C 47.5 ml LV SV BP 53.5 ml LV CO A4C 3.0 L/min LV CO A2C 2.3 L/min LV CO BP 2.6 L/min HR A4C 50.91 BPM HR A2C 48.57 BPM LV EDV Index (BP) LA Volume LA Length A4C 5.7 cm LA Length A2C LA Area A4C s 12.18 cm2 LA Area A2C s LA Vol A4C A-L 22.15 mL LA Vol A2C A-L LA Vol Biplane A-L LA Vol A4C MOD 20.8 mL LA Vol A2C MOD LA Vol BP MOD RA Volume RA Area A4C 11.1 cm2 RA ESV A4C (A-L) 25.5mL RA Vol/BSA A4C A-L RA Length A4C 4.1 cm RA ESV A4C (MOD) 22.8mL LV Diastology MV E' medial 0.079 (>0.07 m/s) MV E Vmax 0.80 (0.4-1.3 m/s) MV E/E' MED 10.18 (<14) MV A Vmax 0.90 (0.4-1.3 m/s) MV E' lateral 0.092 (>0.1 m/s) E/A Ratio 0.9 MV E/E' LAT 8.70 (<14) MV E' Average 0.085 m/s MV E/E'(average) 9.38 Aortic Valve AoV Vmax 1.50 m/s LVOT Vmax 1.02 m/s AoV Peak Grad 9.0 mmHg LVOT Peak Grad 4.2 mmHg AoV Area (Vmax) 2.20 cm2 LVOT VTI 0.228 m AoV VTI 0.372 m LVOT Mean Grad 1.7 mmHg AoV Mean Joe. 0.97 m/s LVOT SV 73.37 mL AoV Mean Grad 4.3 mmHg LVOT Diam s 2.00 cm AoV Area (VTI) 1.97 cm2 AV Regurg Peak Gr. 8.95 mmHg Velocity Ratio 0.68 Mitral Valve MV DT 259 (160-240 msec) Pulmonary Valve PV Vmax 0.90 (0.5-1.5 m/s) RVOT Vmax 0.65 m/s PV Peak Grad 3.3 mmHg RVOT Peak Gr. 1.7 mmHg PV Mean Joe 0.63 m/s RVOT VTI 0.192 m PV Mean Grad 1.8 mmHg RVOT Mean Gr. 1.0 mmHg
== END 2025-05-28 02:34 ==
PROVIDERS: PCP Nurse Practitioner Family; Visit Provider Nurse Practitioner Family
DX: R60.0 Localized edema (principal)
CPT/HCPCS: 93306

== ENCOUNTER 2025-05-29 15:10 | Outpatient (REF) | payer MEDICARE, MEDICAID, SELFPAY ==
[2025-05-29 20:49] LABS: Anion Gap 5.5 mmol/L (3-11); BUN 19 mg/dL (7-18); CO2 32.5 mmol/L (21.0-32.0); Calcium 10.0 mg/dL (8.5-10.1); Chloride 99 mmol/L (98-107); Estimated GFR 56.25 (mL/min/1.73m2); Glucose 126 mg/dL (74-106); Potassium 4.3 mmol/L (3.5-5.1); Sodium 137 mmol/L (136-145)
== END 2025-05-29 15:11 | disposition home or self-care (01) ==
LOC: NCHCN 15:10
PROVIDERS: PCP Nurse Practitioner Family; Visit Provider Nurse Practitioner Family
DX: R60.0 Localized edema (principal)
CPT/HCPCS: 80048

== ENCOUNTER 2025-06-27 21:37 | Outpatient (REF) | payer MEDICARE, MEDICAID, SELFPAY ==
[2025-06-27 21:48] LABS: Abs Immature Grans 0.02 10^3/uL (0.0-0.06); HCT 41.2 % (36.0-46.0); HGB 13.2 g/dL (11.2-15.7); Immature Grans % 0.3 %; MCH 28.6 pg (27.0-33.0); MCHC 32.0 % (32.0-36.0); MCV 89 fL (80-95); MPV 9.8 fL (8.0-11.0); Platelet Count 321 10^3/uL (130-400); RBC 4.62 10^6/uL (3.93-5.22); RDW 13.7 % (11.7-14.6); RDW-SD 44.9 fL; WBC 7.60 10^3/uL (4.4-10.8)
[2025-06-27 21:56] LABS: Iron 51 ug/dL (50-170); Total Iron Binding Capacity 240 ug/dL (250-450)
[2025-06-27 22:15] LABS: ALT 18 U/L (14-59); AST 16 U/L (15-37); Albumin 3.4 g/dL (3.4-5.0); Alkaline Phosphatase 67 U/L (46-116); Anion Gap 4.7 mmol/L (3-11); BUN 15 mg/dL (7-18); Bilirubin, Total 0.4 mg/dL (0.2-1.0); CO2 33.3 mmol/L (21.0-32.0); Calcium 9.7 mg/dL (8.5-10.1); Chloride 99 mmol/L (98-107); Estimated GFR 73.52 (mL/min/1.73m2); Ferritin 272 ng/mL (8-252); Glucose 91 mg/dL (74-106); Potassium 4.4 mmol/L (3.5-5.1); Sodium 137 mmol/L (136-145); TSH (W/Ref FT4) 2.06 uIU/mL (0.36-3.74); Total Protein 7.4 g/dL (6.4-8.2)
== END 2025-06-27 21:38 | disposition home or self-care (01) ==
LOC: NCHCN 21:37
PROVIDERS: PCP Nurse Practitioner Family; Visit Provider Nurse Practitioner Family
DX: R51.9 Headache, unspecified (principal)
CPT/HCPCS: 80053; 82728; 83540; 83550; 84443; 85025

== ENCOUNTER 2025-06-29 11:35 | Emergency (ER) | payer MEDICARE, MEDICAID, SELFPAY ==
[2025-06-29] VITALS (15 sets, daily range): BP systolic 165–192; BP diastolic 55–132; PULSE 47–62; RESP 16–18; TEMP 36.3–36.6; O2SAT 55–98
--- NOTE | 2025-06-29 12:00 | DI.CT_ITS ---
Exam(s) CT BRAIN NECK CTA EXAM: CT BRAIN NECK CTA CLINICAL HISTORY: new onset headache. TECHNIQUE: Imaging Protocol: Axial CT angiography was performed with multi- slice acquisition and multi-planar and MIP reconstructions. CONTRAST MATERIAL: Intravenous: Omnipaque 350 Contrast volume:70 ml COMPARISON: No exams were available for comparison FINDINGS: CT Head W/O and W contrast: Ventricles and Extra axial spaces: Moderate ventricular dilatation. Hemorrhage: None. Cerebral parenchyma: No evidence of acute infarct or mass. Moderate microvascular changes consistent with small vessel disease. Midline shift: None. Brainstem/Cerebellum: No acute findings.. Calvarium: Normal. Visualized Paranasal sinuses/Mastoids: Mucous retention in the right sphenoid sinus. Soft Tissues: Unremarkable. Enhancement: Normal. Venous sinuses are patent. CTA Brain W: Internal Carotid Arteries: Right: No aneurysm, occlusion or significant stenosis. Left: No aneurysm, occlusion or significant stenosis. Middle Cerebral Arteries: Right: No aneurysm, occlusion or significant stenosis. Left: No aneurysm, occlusion or significant stenosis. Anterior Cerebral Arteries: Right: No aneurysm, occlusion or significant stenosis. Left: No aneurysm, occlusion or significant stenosis. Posterior cerebral Arteries: Right: No aneurysm, occlusion or significant stenosis. Left: No aneurysm, occlusion or significant stenosis. Vertebral Arteries: Right: No aneurysm, occlusion or significant stenosis. Left: Dominant no aneurysm, occlusion or significant stenosis. Basilar Artery: No aneurysm, occlusion or significant stenosis. CTA Neck W: Visualized aorta: Unremarkable. Visualized pulmonary arteries: Unremarkable. Subclavian arteries: Unremarkable. Common Carotid: Right: No dissection, occlusion. Severe stenosis at the bulb. Left: No dissection, occlusion. Moderate stenosis at the bulb. External Carotid: Right: No dissection, occlusion or significant stenosis. Left: No dissection, occlusion or significant stenosis. Internal Carotid: Marked tortuosity with medial deviation into the retropharyngeal region bilaterally . Right: Somewhat diminutive caliber throughout compared to the left side. No dissection, occlusion or significant stenosis. Left: No dissection, occlusion or significant stenosis. Vertebral Artery: Right: No dissection, occlusion or significant stenosis. Left: Dominant moderate stenosis at the origin. No dissection, occlusion. Lung Apices: No acute findings. Bones: No acute abnormality. Severe degenerative disc changes. Soft Tissues: Normal. IMPRESSION: 1. CTA brain: Normal CTA examination of the [place]. 2. Head CT: Ventricular dilatation appears somewhat out of proportion to degree of atrophy. Normal pressure hydrocephalus could be considered. 3. CTA neck: Severe stenosis of the right common carotid bulb. The right internal carotid artery shows mildly reduced diameter throughout its course compared to the left side. Moderate stenosis at the left common carotid bulb. Marked tortuosity of the internal carotid arteries with medial deviation into the retropharyngeal region. Moderate stenosis at the origin of the left vertebral artery. The preliminary [facility] report was reviewed. RADIATION DOSE DELIVERED: Total DLP DATA REPOSITORY: All CT scans at this facility are submitted to the National Radiology Data Registry (NRDR) Dose Index Registry (DIR) with the [employer] (ACR). RADIATION OPTIMIZATION: All CT scans at this facility use at least one of these dose optimization techniques: automated exposure control; mA and/or kV adjustment per patient size (includes targeted exams where dose is matched to clinical indication); or iterative reconstruction.
[2025-06-29 12:46] LABS: Glucose Negative (Negative)
[2025-06-29 12:55] LABS: C & S Indicated? No; RBC 0-2 HPF (0-2)
[2025-06-29 12:56] LABS: Abs Immature Grans 0.02 10^3/uL (0.0-0.06); HCT 41.9 % (36.0-46.0); HGB 13.2 g/dL (11.2-15.7); Immature Grans % 0.3 %; MCH 28.0 pg (27.0-33.0); MCHC 31.5 % (32.0-36.0); MCV 89 fL (80-95); MPV 9.1 fL (8.0-11.0); Platelet Count 299 10^3/uL (130-400); RBC 4.71 10^6/uL (3.93-5.22); RDW 13.7 % (11.7-14.6); RDW-SD 44.5 fL; WBC 7.23 10^3/uL (4.4-10.8)
[2025-06-29] MEDS: Dexamethasone 4 MG/ML VIAL IVP (12:58)
[2025-06-29] MEDS: Prochlorperazine 10 MG/2 ML VIAL 5 MG IVP (12:58)
[2025-06-29] MEDS: ACETAMINOPHEN 500 MG/50 ML BAG 200 MG IVPB (12:59)
[2025-06-29] MEDS: Normal Saline 500 ML IV (13:00)
[2025-06-29 13:09] LABS: Magnesium 2.0 mg/dL (1.8-2.4)
[2025-06-29 13:15] LABS: ALT 17 U/L (14-59); AST 13 U/L (15-37); Albumin 3.4 g/dL (3.4-5.0); Alkaline Phosphatase 68 U/L (46-116); Anion Gap 7.3 mmol/L (3-11); BUN 13 mg/dL (7-18); Bilirubin, Total 0.5 mg/dL (0.2-1.0); CO2 29.7 mmol/L (21.0-32.0); Calcium 10.0 mg/dL (8.5-10.1); Chloride 102 mmol/L (98-107); Estimated GFR 73.52 (mL/min/1.73m2); Glucose 89 mg/dL (74-106); Potassium 4.1 mmol/L (3.5-5.1); Sodium 139 mmol/L (136-145); Total Protein 7.9 g/dL (6.4-8.2)
[2025-06-29] MEDS: Normal Saline - Diluent 50 ML VIAL IJ (13:43)
[2025-06-29] MEDS: Omnipaque 350 MG/ML 100 ML BTL IJ (13:43)
[2025-06-29] MEDS: Normal Saline Flush 10 ML SYR IVP (13:43)
--- NOTE | 2025-06-29 15:12 | DI.[facility]_ITS ---
PROCEDURE INFORMATION: Exam: CTA Head Without And With Contrast, Arteriography Exam date and time: 06/29/2025 1:46 PM Age: 84 years old Clinical indication: Other: New onset headache TECHNIQUE: Imaging protocol: Computed tomographic angiography of the head without and with contrast. Exam focused on the arteries. 3D rendering (Not supervised by radiologist): MIP and/or 3D reconstructed images were created by the technologist. Contrast material: OMNIPAQUE 350; Contrast volume: 70 ml; Contrast route: INTRAVENOUS (IV); COMPARISON: No relevant prior studies available. FINDINGS: ANTERIOR CIRCULATION: Right internal carotid artery: Intracranial segment is patent with no significant stenosis or occlusion. No aneurysm. Right middle cerebral artery: No occlusion or significant stenosis. No aneurysm. Right anterior cerebral artery: No occlusion or significant stenosis. No aneurysm. Left internal carotid artery: Intracranial segment is patent with no significant stenosis. No aneurysm. Left middle cerebral artery: No occlusion or significant stenosis. No aneurysm. Left anterior cerebral artery: No occlusion or significant stenosis. No aneurysm. POSTERIOR CIRCULATION: Right vertebral artery: No occlusion or significant stenosis. No aneurysm. Left vertebral artery: No occlusion or significant stenosis. No aneurysm. Basilar artery: No occlusion or significant stenosis. No aneurysm. Right posterior cerebral artery: No occlusion or significant stenosis. No aneurysm. Left posterior cerebral artery: No occlusion or significant stenosis. No aneurysm. HEAD: Brain: No hemorrhage. Moderate white matter disease. No mass effect. Cerebral ventricles: Moderate ventriculomegaly. Bones: Unremarkable. No acute fracture. Paranasal sinuses: Fluid level in the right sphenoid sinus. Mastoid air cells: Visualized mastoids are normal. No mastoid effusion. Soft tissues: Unremarkable. IMPRESSION: No large vessel occlusion. Ventriculomegaly as noted. Correlate for normal pressure hydrocephalus Question right sphenoid sinusitis PROCEDURE INFORMATION: Exam: CTA Neck Without And With Contrast Exam date and time: 06/29/2025 1:46 PM Age: 84 years old Clinical indication: Other: New onset headache TECHNIQUE: Imaging protocol: Computed tomographic angiography of the neck without and with contrast. Exam focused on the cervical segments of the vasculature. 3D rendering (Not supervised by radiologist): MIP and/or 3D reconstructed images were created by the technologist. Contrast material: OMNIPAQUE 350; Contrast volume: 70 ml; Contrast route: INTRAVENOUS (IV); COMPARISON: CR XR CHEST 2V PA LATERAL 01/04/2025 10:21 AM FINDINGS: Right common carotid artery: No stenosis. No dissection or occlusion. Right internal carotid artery: Severe stenosis at the bulb. No dissection or occlusion. Partial retropharyngeal course Right external carotid artery: No occlusion or stenosis of the origin. Left common carotid artery: No stenosis. No dissection or occlusion. Left internal carotid artery: Moderate stenosis at the bulb. No dissection or occlusion. Partial retropharyngeal course Left external carotid artery: No occlusion or stenosis of the origin. Right vertebral artery: No stenosis. No dissection or occlusion. Left vertebral artery: Moderate stenosis at the origin. No dissection or occlusion. Soft tissues: Multinodular thyroid No significant soft tissue swelling. Bones/joints: No acute fracture. IMPRESSION: Severe right carotid stenosis Moderate stenosis at the left carotid bulb Moderate stenosis at the origin of the left vertebral artery Multinodular thyroid REFERENCES: NASCET CRITERIA. The degree of stenosis in the cervical segment of the internal carotid artery is based on NASCET criteria. Normal is no stenosis. Mild is less than 50% stenosis. Moderate is 50-69% stenosis. Severe is 70% to 99% stenosis. Total occlusion is no detectable patent lumen. Dictated and Authenticated by: Rickey Miles MD. Orderin Luba Nicholson MD
--- NOTE | 2025-06-29 18:58 | W.ED.GENAD ---
Discharge Plan Disposition Patient Disposition: Home Discharge Details Clinical Impression: Headache, Carotid artery stenosis, Acute UTI, Hypertension Primary Care Provider: Areli Lopez ED Provider: Lyn Verduzco Home Meds and New Rx's Prescriptions: New rosuvastatin [Crestor] 10 mg tablet 10 mg PO DAILY Qty: 14 0RF aspirin 81 mg tablet 81 mg PO DAILY Qty: 30 0RF prochlorperazine maleate [Compazine] 10 mg tablet 10 mg PO Q6H PRNQty: 10 0RF Continued oxybutynin chloride 5 mg tablet extended release 24hr 5 mg PO DAILY Qty: 90 0RF acetaminophen [Tylenol] 325 MG tablet 325 mg PO Q4H PRN Vitamin C 100 MG tablet 100 mg PO DAILY hydrochlorothiazide 25 MG tablet 12.5 mg PO DAILY Nasir/Vit D 1 cap PO DAILY estradiol [Vagifem] 10 MCG tablet 10 mcg VG twice weekly Qty: 25 losartan 100 MG tablet 100 mg PO HS amlodipine 5 mg tablet 5 mg PO DAILY potassium chloride 20 mEq tablet extended release 20 meq PO DAILY chlorthalidone 50 mg tablet 50 mg PO DAILY Discharge Instructions Instructions: Carotid Artery Disease (DC), Headache, Adult ED Additional Instructions: Please take Compazine as needed for headache in addition to Tylenol Patient to stay hydrated at least 8 glasses of water daily You have severe carotid stenosis in the right carotid artery, the vascular doctor at [facility] will reach out to you to schedule an appointment for follow-up, in the interim it is really important that you take the statin medication called Crestor and aspirin as prescribed I have also placed a referral to cardiology to better control your blood pressure, this is very important as having stenosis in your carotid artery and high blood pressure can increase your risk of having a stroke Please return if you develop new or worsening symptoms including reoccurence of your headache Referrals: Areli Lopez [Primary Care Provider, Medicine] Discharge Data Discharge Date/Time-TO BE ENTERED AT DEPARTURE: 06/29/25 17:13 HPI General Date/Time Provider Initiated Documentation: 06/29/25 11:49. HPI Narrative: This 84-year-old female presents with headache for the past 4 days. No history of similar. Denies stiff neck but has had blurred vision to both eyes. Feels lightheaded without reported dizziness but does have a history of mild dementia. Denies nausea or vomiting. Denies exacerbation of symptoms with ambulation. Related Data Home Medications ?Medication ?Instructions ?Recorded ?Confirmed losartan 100 mg tablet 100 mg PO HS 02/22/14 01/04/25 acetaminophen 325 mg tablet 325 mg PO Q4H PRN 07/16/14 06/29/25 (Tylenol) ascorbic acid (vitamin C) 100 mg 100 mg PO DAILY 07/16/14 06/29/25 tablet (Vitamin C) Nasir/Vit D 1 cap PO DAILY 11/20/14 06/29/25 hydrochlorothiazide 25 mg tablet 12.5 mg PO DAILY 11/20/14 06/29/25 estradiol 10 mcg vaginal tablet 10 mcg vaginal twice weekly #25 08/05/15 01/04/25 (Vagifem) tabs oxybutynin chloride 5 mg 5 mg PO DAILY #90 tabs 05/20/19 01/04/25 tablet,extended release 24 hr amlodipine 5 mg tablet 5 mg PO DAILY 01/04/25 06/29/25 chlorthalidone 50 mg tablet 50 mg PO DAILY 01/04/25 06/29/25 potassium chloride 20 mEq 20 meq PO DAILY 01/04/25 01/04/25 tablet,extended release aspirin 81 mg tablet 81 mg PO DAILY #30 tabs 06/29/25 prochlorperazine maleate 10 mg 10 mg PO Q6H PRN #10 tabs 06/29/25 tablet (Compazine) rosuvastatin 10 mg tablet (Crestor) 10 mg PO DAILY #14 tabs 06/29/25 Previous Rx's ?Medication ?Instructions ?Recorded oxybutynin chloride 5 mg 5 mg PO DAILY #90 tabs 05/20/19 tablet,extended release 24 hr aspirin 81 mg tablet 81 mg PO DAILY #30 tabs 06/29/25 prochlorperazine maleate 10 mg 10 mg PO Q6H PRN #10 tabs 06/29/25 tablet (Compazine) rosuvastatin 10 mg tablet (Crestor) 10 mg PO DAILY #14 tabs 06/29/25 Allergies Allergy/AdvReac Type Severity Reaction Status Date / Time Penicillins Allergy Intermediate Hives Verified 06/29/25 11:46 cephalexin (From Keflex) Allergy Mild Other (See Verified 06/29/25 11:46 Comment) codeine Allergy Mild other Verified 06/29/25 11:46 lisinopril Allergy Mild Swelling/Ed Verified 06/29/25 11:46 esmer General Stated Complaint: Headache EVANGELISTA: 3 Exam Narrative Exam Narrative: 84-year-old female alert, oriented x 4 pupils equal round reactive to light and accommodation, negative [id number], negative heel yanez, cn2-12 intact, TMs clear bilaterally ambulatory with steady gait cardiac rate rhythm regular no respiratory distress lungs clear Course Vital Signs Vital signs: Vital Signs Temperature 36.6 C 06/29/25 11:43 Pulse 54 L 06/29/25 11:43 Respiratory Rate 18 06/29/25 11:43 Blood Pressure 180/93 H 06/29/25 11:43 Pulse Oximetry 96 06/29/25 11:43 Temperature 36.3 C L 06/29/25 11:48 Temperature Source Oral 06/29/25 11:48 Pulse 55 L 06/29/25 16:31 Respiratory Rate 16 06/29/25 11:48 Blood Pressure 192/132 H 06/29/25 16:31 Blood Pressure Mean 154 06/29/25 16:31 Blood Pressure Position Sitting 06/29/25 11:48 Pulse Oximetry 97 06/29/25 16:31 Oxygen Delivery Method Room Air 06/29/25 12:18 Oxygen Flow Rate 0 06/29/25 12:18 Pain Level 7 06/29/25 11:43 Lab/Test Results Lab/Test Results: Laboratory Tests Range/Units 06/29/25 06/29/25 12:36 12:50 WBC (4.4-10.8) 10^3/uL 7.23 RBC (3.93-5.22) 10^6/uL 4.71 Hgb (11.2-15.7) g/dL 13.2 Hct (36.0-46.0) % 41.9 MCV (80-95) fL 89 MCH (27.0-33.0) pg 28.0 MCHC (32.0-36.0) % 31.5 L RDW (11.7-14.6) % 13.7 Plt Count (130-400) 10^3/uL 299 MPV (8.0-11.0) fL 9.1 Immature Gran % % 0.3 Neutrophils % % 62.9 Lymphocytes % % 21.3 Monocytes % % 10.9 Eosinophils % % 4.0 Basophils % % 0.6 Nucleated RBC % (0.0-0.3) % 0.0 Absolute Neutrophils (1.2-6.7) 10^3/uL 4.55 Absolute Lymphocytes (1.2-3.4) 10^3/uL 1.54 Absolute Monocytes (0.1-0.8) 10^3/uL 0.79 Absolute Eosinophils (0.0-0.7) 10^3/uL 0.29 Absolute Basophils (0.0-0.2) 10^3/uL 0.04 Sodium (136-145) mmol/L 139 Potassium (3.5-5.1) mmol/L 4.1 Chloride (98-107) mmol/L 102 Carbon Dioxide (21.0-32.0) mmol/L 29.7 Anion Gap (3-11) mmol/L 7.3 BUN (7-18) mg/dL 13 Creatinine (0.55-1.02) mg/dL 0.8 Est GFR (CKD-EPI 2020) (mL/min/1.73m2) 73.52 Glucose (74-106) mg/dL 89 Calcium (8.5-10.1) mg/dL 10.0 Magnesium (1.8-2.4) mg/dL 2.0 Total Bilirubin (0.2-1.0) mg/dL 0.5 AST (15-37) U/L 13 L ALT (14-59) U/L 17 Alkaline Phosphatase (46-116) U/L 68 Total Protein (6.4-8.2) g/dL 7.9 Albumin (3.4-5.0) g/dL 3.4 Urine Color (Yellow) Yellow Urine Clarity (Clear) Sl Cloudy Urine pH (5-8) 7.0 Ur Specific [place] (1.005-1.025) 1.020 Urine Protein (Neg-Trace) mg/dL Negative Urine Ketones (Negative) mg/dL Negative Urine Blood (Negative) Negative Urine Nitrite (Negative) Positive H Urine Bilirubin (Negative) Negative Urine Urobilinogen (Up to 0.2) mg/dL 0.2 Ur Leukocyte Esterase (Negative) Negative Urine RBC (0-2) HPF 0-2 Urine WBC (0-5) HPF 3-5 Ur Epithelial Cells (Negative) HPF Few Urine Crystals (Negative) HPF Negative Urine Bacteria (Negative) HPF Many Urine Mucus (Negative) Negative Ur Culture Indicated? No Urine Glucose (Negative) mg/dL Negative Medical Decision Making Results: CTA head and neck show evidence of severe carotid stenosis on right with moderate stenosis on left. No prior to compare, CBC CMP are within normal limits urinalysis positive for nitrates 3-5 white blood cells Assessment and plan: Patient with headache, easily alleviated with Decadron and Compazine. Headache free at time of reassessment. Case discussed with Dr. Burnett vascular surgeon at [facility] and recommendation to start patient on high-dose statin and aspirin. Patient is agreeable to both. Her blood pressure is elevated, I do not suspect this is because of her headache she is headache free after typical migraine meds. She has no meningismus and is fully alert and oriented. Recommendation for early follow-up with vascular. I discussed with Anuja Conteh, patient's DPOA and they will follow-up with her primary care physician tomorrow. I reiterated the importance of following up with cardiology as she has been having difficulty controlling her blood pressure with the meds that she is on. A referral was placed to cardiology and vascular surgery which she will need close outpatient follow-up with. Patient discharged home asymptomatic with steady gait. As she has positive nitrates there is a malodor of urine in the room, and she has 3-5 white blood cells I will treat her for urinary tract infection with fosfomycin a single dose. She is given low threshold to return with new or worsening complaints. PFSH All Active Problems Hypertension (Chronic) Acute UTI (Acute) Carotid artery stenosis (Acute) Headache (Acute) Urinary incontinence (Chronic) Overactive bladder treated with oxybutynin with+/- results. 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 Mildly symptomatic. No treatment recommended Hyperlipidemia (Chronic) Hypertension (Chronic) cholelithiasis by US (Chronic) Osteoarthritis (Chronic) Osteopenia (Chronic) GI bleed (Acute 11/20/14) H/O gastrointestinal diverticular hemorrhage (Chronic) H/O surgical procedure (Chronic) a. colonoscopy b. EGD c. Cystoscopy d. 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
== END 2025-06-29 17:13 | disposition home or self-care (01) ==
PROVIDERS: Emergency Provider Physician Assistant; PCP Nurse Practitioner Family
DX: R51.9 Headache, unspecified (principal); I10 Essential (primary) hypertension; N39.0 Urinary tract infection, site not specified; I65.21 Occlusion and stenosis of right carotid artery
CPT/HCPCS: 99285 ×2; 96374; 96375; 70496; 70498; 80053; 96361; 81003; 81015; 83735; 85025; J0131; J0780; J1100; J3490

== ENCOUNTER 2025-07-11 13:17 | Outpatient (CLI) | payer MEDICARE, MEDICAID, SELFPAY ==
[2025-07-11 15:06] LABS: Abs Immature Grans 0.04 10^3/uL (0.0-0.06); HCT 41.2 % (36.0-46.0); HGB 13.1 g/dL (11.2-15.7); Immature Grans % 0.4 %; MCH 28.4 pg (27.0-33.0); MCHC 31.8 % (32.0-36.0); MCV 89 fL (80-95); MPV 9.2 fL (8.0-11.0); Platelet Count 322 10^3/uL (130-400); RBC 4.62 10^6/uL (3.93-5.22); RDW 14.0 % (11.7-14.6); RDW-SD 45.2 fL; WBC 10.03 10^3/uL (4.4-10.8)
== END 2025-07-11 13:18 | disposition home or self-care (01) ==
LOC: LBO 13:18
PROVIDERS: PCP Nurse Practitioner Family; Visit Provider Nurse Practitioner Family
DX: K30 Functional dyspepsia (principal)
CPT/HCPCS: 36415; 85025

== ENCOUNTER 2025-08-27 11:57 | Outpatient (REF) | payer MEDICARE, MEDICAID, SELFPAY ==
[2025-08-27 14:32] LABS: Hemoglobin A1C 5.6 % (<5.7); Magnesium 1.8 mg/dL (1.6-2.6)
[2025-08-27 14:36] LABS: ALT < 7 U/L (10-49); AST 17 U/L (<34); Albumin 3.7 g/dL (3.2-5.0); Alkaline Phosphatase 82 U/L (46-116); Anion Gap 8.1 mmol/L (3-11); BUN 16 mg/dL (9-23); Bilirubin, Total 0.5 mg/dL (0.2-1.2); CO2 29.9 mmol/L (20.0-31.0); Calcium 9.7 mg/dL (8.3-10.6); Chloride 103 mmol/L (98-107); Cholesterol 114 mg/dL (<200); Glucose 86 mg/dL (74-106); HDL Cholesterol 56 mg/dL (>or=50); Potassium 4.3 mmol/L (3.5-5.1); Sodium 141 mmol/L (136-145); Total Protein 6.5 g/dL (5.7-8.2)
== END 2025-08-27 11:58 | disposition home or self-care (01) ==
LOC: NCHCN 11:57
PROVIDERS: PCP Nurse Practitioner Family; Visit Provider Nurse Practitioner Family
DX: E78.2 Mixed hyperlipidemia (principal); Z86.39 Personal history of other endocrine, nutritional and metabolic disease; E87.1 Hypo-osmolality and hyponatremia; I10 Essential (primary) hypertension; K30 Functional dyspepsia; R73.03 Prediabetes; E66.9 Obesity, unspecified
CPT/HCPCS: 80053; 80061; 83036; 83735